=== PATIENT | female | born 1980 | race Asian ===

== ENCOUNTER 2016-11-29 06:15 | Inpatient (IN) | payer BC ==
[2016-11-29] VITALS (16 sets, daily range): BP systolic 107–135; BP diastolic 52–77
[~2016-11-29 06:15] MED LIST: MOTRIN800 MG PO; PERCOCET 5/31 TABLET PO
[2016-11-29 08:19] LABS: EOSINOPHIL (%) 0.6 % (0-5); HEMATOCRIT 38.6 % (36.0-46.0); IMMATURE GRANULOCYTE (%) 1.1 % (0.0-0.7); IMMATURE GRANULOCYTE COUNT 0.1 K/uL; INSTRUMENT ABS NEUTROPHIL CT 4.9 K/uL; LYMPHOCYTE COUNT 0.9 K/uL (1.0-2.8); MCHC 32.6 G/DL (30.0-36.0); MCV 94.8 FL (83-99); MEAN PLAT.VOLUME 9.7 uM^3 (9.5-12.4); MONOCYTE (%) 7.6 % (3-12); MONOCYTE COUNT 0.5 K/uL (0-0.8); NEUTROPHIL (%) 76.3 % (45-76); NEUTROPHIL COUNT 4.9 K/uL (1.8-6.4); PLATELET COUNT 192 K/uL (156-360); RBC DIS.WIDTH-CV 12.9 % (11.8-14.6); RBC DIS.WIDTH-SD 44.5 % (39-53); RED BLOOD COUNT 4.07 M/uL (3.80-5.20); WHITE BLOOD COUNT 6.4 K/uL (4.1-10.2)
[2016-11-29 08:24] LABS: DRSB INTERNAL CONTROL PASS; PROBE CHECK PASS; SPECIMEN PROCESSING CONTROL PASS
[2016-11-29] MEDS ORDERED: IBUPROFEN800 MG PO (14:29)
[2016-11-30 07:29] VITALS: BP 117/80
[2016-11-30 14:56] VITALS: BP 106/64
[2016-11-30 22:49] VITALS: BP 120/72
[2016-12-01 07:08] VITALS: BP 118/78
[2016-12-01 14:38] VITALS: BP 101/64
== END 2016-12-01 18:30 | disposition home or self-care (01) | DRG 775 ==
LOC: LDRP-OP 06:15 → 2WEST 06:16 → LDRP-OP 02-03 11:05
PROVIDERS: Midwife
PROC: 0HQ9XZZ Repair Perineum Skin, External Approach (ICD-10-PCS; principal; 2016-11-29)
DX: O70.0 First degree perineal laceration during delivery (principal); O60.14X0 Preterm labor third trimester with preterm delivery third trimester, not applicable or unspecified; O42.013 Preterm premature rupture of membranes, onset of labor within 24 hours of rupture, third trimester; O76 Abnormality in fetal heart rate and rhythm complicating labor and delivery; O69.1XX0 Labor and delivery complicated by cord around neck, with compression, not applicable or unspecified; Z3A.35 35 weeks gestation of pregnancy; Z37.0 Single live birth
CPT/HCPCS: 85025; 87081; 87653; J0595; J0702; J2540